=== PATIENT | female | born 1940 | race Caucasian/White ===

== ENCOUNTER → 2019-11-11 10:35 | Outpatient (BNVA) | payer MEDICARE, OTHER, SELFPAY | PROVIDERS: Family Provider Nurse Practitioner Family; PCP Family Medicine; Visit Provider Nurse Practitioner Family | DX: R06.00 Dyspnea, unspecified (principal); I50.9 Heart failure, unspecified | CPT/HCPCS: 71046; 80053; 85025 ==

== ENCOUNTER → 2019-11-14 09:32 | Outpatient (BNVA) | payer MEDICARE, OTHER, SELFPAY | PROVIDERS: Family Provider Nurse Practitioner Family; PCP Family Medicine; Visit Provider Nurse Practitioner Family | DX: R06.02 Shortness of breath (principal); R06.00 Dyspnea, unspecified | CPT/HCPCS: 83880 ==

== ENCOUNTER → 2019-11-17 08:21 | Outpatient (BNVA) | payer MEDICARE, OTHER, SELFPAY | PROVIDERS: Family Provider Nurse Practitioner Family; PCP Family Medicine; Visit Provider Nurse Practitioner Family | DX: R05 Cough (principal); R06.02 Shortness of breath; I10 Essential (primary) hypertension; R06.00 Dyspnea, unspecified; E78.2 Mixed hyperlipidemia; E03.9 Hypothyroidism, unspecified; Z78.9 Other specified health status; K21.0 Gastro-esophageal reflux disease with esophagitis; J40 Bronchitis, not specified as acute or chronic | CPT/HCPCS: 71046; 80053; 80061; 84443; 85025; 85379 ==

== ENCOUNTER 2019-12-09 12:06 | Outpatient (CLI) | payer MEDICARE, OTHER, SELFPAY ==
--- NOTE | 2019-12-09 12:47 | CT_ITS ---
WS: [id number] CT CHEST ANGIOGRAPHY WITH REFORMATS HISTORY: Positive D-DIMER, DYSPNEA, TACHYCARDIA TECHNIQUE: Contiguous axial images are obtained through the chest during arterial injection of intrav enous contrast. Images are reconstructed to evaluate the pulmonary arteries. MIP imaging also reviewe d. All CT scans at [facility] use at least one of these dose optimization techniques: aut omated exposure control; mA and/or kV adjustment per patient size (includes targeted exams where dose is matched to clinical indication); or iterative reconstruction. CONTRAST: Omnipaque 350; 95 mL IV. DLP: 531.66 mGy.cm COMPARISON: None available. Excellent opacification of the pulmonary arteries. No pulmonary emboli are identified. Pulmonary robson ry size is slightly enlarged. Atherosclerosis aorta with no aneurysm. Normal size cardiac chambers. N o pericardial or pleural effusion. LEFT atrial appendage is clear. Hyperinflated lungs with emphysema and pulmonary fibrosis. Tree-in-bud airspace disease in the periph saúl of the lungs along with reticulations. Majority of these changes are probably chronic. There is s ome very mild groundglass attenuation bilaterally probably related to air trapping. No suspicious nod ules or mass. Mildly prominent but indeterminate hilar adenopathy. Lymph nodes measure up to 1 cm at the hilar lashon ons. Small hiatal hernia. Cholelithiasis. No evidence for acute cholecystitis by CT. Mild hepatomegaly. Negative adrenal glands . Mild thoracic spondylosis. CT/CT angio chest PE protcl [id number] IMPRESSION: 1. No pulmonary embolism. 2. Emphysema and changes of chronic fibrosis. 3. Superimposed mild edema and distal airways opacifications consistent with a superimposed acute pneumonitis and/or bronchial pneumonia. 4. Mild pulmonary hypertension. 5. Indeterminate hilar lymph nodes are probably reactive adenopathy from infla mmatory process in the lungs. 6. Cholelithiasis without acute cholecystitis.
[2019-12-09] MEDS: iohexol 350 mg/mL 100 mL Btl IV (13:09)
== END 2019-12-09 12:07 | disposition home or self-care (01) ==
PROVIDERS: Family Provider Nurse Practitioner Family; PCP Family Medicine; Visit Provider Nurse Practitioner Family
DX: R79.89 Other specified abnormal findings of blood chemistry (principal); R06.00 Dyspnea, unspecified; R00.0 Tachycardia, unspecified; J43.9 Emphysema, unspecified; R60.9 Edema, unspecified; I27.20 Pulmonary hypertension, unspecified; K80.20 Calculus of gallbladder without cholecystitis without obstruction
CPT/HCPCS: 71275

== ENCOUNTER → 2024-10-24 09:23 | Outpatient (BNVA) | payer MEDICARE, OTHER, SELFPAY | PROVIDERS: Family Provider Nurse Practitioner Family; PCP Family Medicine; Visit Provider Podiatrist Foot & Ankle Surgery | DX: M20.41 Other hammer toe(s) (acquired), right foot (principal); M20.42 Other hammer toe(s) (acquired), left foot; L97.522 Non-pressure chronic ulcer of other part of left foot with fat layer exposed | CPT/HCPCS: 99203 ==

== ENCOUNTER → 2024-11-07 11:08 | Outpatient (BNVA) | payer MEDICARE, OTHER, SELFPAY | PROVIDERS: Family Provider Nurse Practitioner Family; PCP Family Medicine; Visit Provider Podiatrist Foot & Ankle Surgery | DX: M20.41 Other hammer toe(s) (acquired), right foot (principal); M20.42 Other hammer toe(s) (acquired), left foot; L97.522 Non-pressure chronic ulcer of other part of left foot with fat layer exposed; L97.511 Non-pressure chronic ulcer of other part of right foot limited to breakdown of skin | CPT/HCPCS: 99213 ==

== ENCOUNTER → 2024-12-05 11:00 | Outpatient (BNVA) | payer MEDICARE, OTHER, SELFPAY | PROVIDERS: Family Provider Nurse Practitioner Family; PCP Family Medicine; Visit Provider Podiatrist Foot & Ankle Surgery | DX: M20.41 Other hammer toe(s) (acquired), right foot (principal); M20.42 Other hammer toe(s) (acquired), left foot; L97.522 Non-pressure chronic ulcer of other part of left foot with fat layer exposed; L97.511 Non-pressure chronic ulcer of other part of right foot limited to breakdown of skin | CPT/HCPCS: 99213 ==